=== PATIENT | male | born 1970 | race Hispanic/Latino ===

== ENCOUNTER → 2020-04-21 | Outpatient (CLI) | payer OTHER ==
[~2020-04-21] MED LIST: ALBUTEROL SULFATE 0.083% 2.5 MG/3 ML INH IH ONE
== END | disposition home or self-care (01) ==
LOC: RESP 12:39
PROVIDERS: ATTEND Orthopaedic Surgery
DX: J40 Bronchitis, not specified as acute or chronic (principal)
CPT/HCPCS: 94060